=== PATIENT | female | born 1975 | race Caucasian/White ===

== ENCOUNTER 2020-08-05 13:55 | Outpatient (CLI) | payer OTHER ==
[~2020-08-05 13:55] MED LIST: LEVAQUIN500 MG PO; PERCOCET 10-3251 TAB
== END 2020-08-05 13:59 | disposition home or self-care (01) ==
LOC: MAMO-SONO 13:55
PROVIDERS: ATTEND Obstetrics & Gynecology
DX: Z12.31 Encounter for screening mammogram for malignant neoplasm of breast (principal); N60.11 Diffuse cystic mastopathy of right breast; N60.12 Diffuse cystic mastopathy of left breast